=== PATIENT | male | born 1930 | race Caucasian/White ===

== ENCOUNTER → 2017-08-23 | Outpatient (CLI) | payer MEDICARE, BC ==
[~2017-08-23] MED LIST: ABAC300; ALLO300 PO; AMOCLA875 PO; Azor 10-40 MG1 EACH PO; CARV6.25 PO; CEFD300 PO; CEFP200 PO; CHOL10002 PO; CIPR500 PO; COLCHICINE0.6 MG PO; DOXY100 PO; ELIQUIS2.5 MG PO; FERR325 PO; FURO20 PO; FURO40 PO; GUAI600T33 PO; HYDR-86 PO; LEVFLO500 PO; LISI5 PO; LOSA25 PO; LOSA50 PO; METO25ER PO; MIRT15 PO; OXYC10ER PO; OXYC5; Omeprazole20 M1 PO; POTA10T PO; PRED10; PRED10 PO; PRED5 PO; PREG25 PO; RANI150 PO; Revlimid5 MG PO; SENN187 PO; SERT50 PO; TAMS.4ER PO; TEMA15 PO; VANCO 1 GR1 GM/250 M IV; VITAMIN D-32000 UNIT PO; WARF2.5 PO; WARF5; WARF5 PO; Zithromax250 MG PO; [UNRECOGNIZED DRUG - CODE] PO
[2017-08-23 09:49] LABS: BASOPHILS ABSOLUTE AUTO 0.03 K/mm3 (0.00-0.23); BASOPHILS PERCENT AUTO 1 % (0-2); EOSINOPHILS ABSOLUTE AUTO 0.02 K/mm3 (0.00-0.68); EOSINOPHILS PERCENT AUTO 0 % (0-6); Hematocrit 32.6 % (37.0-53.0); Hemoglobin 11.3 g/dL (13.5-17.5); IMMATURE GRAN ABSOLUTE AUTO 0.03 K/mm3 (0.00-0.10); IMMATURE GRAN PERCENT AUTO 1 % (0-1); LYMPHOCYTES ABSOLUTE AUTO 0.67 K/mm3 (0.84-5.20); LYMPHOCYTES PERCENT AUTO 12 % (21-46); MONOCYTES ABSOLUTE AUTO 1.04 K/mm3 (0.16-1.47); MONOCYTES PERCENT AUTO 18 % (4-13); Mean Corpuscular HGB 30.9 pg (26.0-34.0); Mean Corpuscular HGB Conc 34.7 g/dL (31.5-36.5); Mean Corpuscular Volume 89 fL (80-100); Mean Platelet Volume 9.9 fL (9.1-12.4); NEUTROPHILS ABSOLUTE AUTO 3.98 K/mm3 (1.96-9.15); NEUTROPHILS PERCENT AUTO 69 % (41-73); Platelet Count 107 K/mm3 (150-400); RDW Coefficient Variation 18.3 % (11.7-14.2); RDW Standard Deviation 58.9 fL (35.1-46.3); Red Blood Cell Count 3.66 M/mm3 (4.30-5.90); White Blood Cell Count 5.77 K/mm3 (4.00-11.30)
[2017-08-23 09:52] LABS: Anion Gap 10 mmol/L (6-16); Blood Urea Nitrogen 30 mg/dL (8-24); Bun/Creatinine Ratio 28.3 (12.0-20.0); CO2, Blood 26 mmol/L (21-32); Calcium, Blood 9.8 mg/dL (8.5-10.1); Chloride, Blood 98 mmol/L (98-108); Creatinine, Blood 1.06 mg/dL (0.60-1.20); Glomerular Filtration Rate >60 (60-); Glucose, Blood 115 mg/dL (70-99); Potassium, Blood 4.4 mmol/L (3.5-5.5); Sodium, Blood 134 mmol/L (136-145)
== END | disposition home or self-care (01) ==
LOC: LAB EV 09:43 → LAB SHORT 09:43
PROVIDERS: Physician Assistant Surgical
DX: R06.02 Shortness of breath (principal); M79.89 Other specified soft tissue disorders
CPT/HCPCS: 80048; 83880; 85025

== ENCOUNTER 2017-11-06 05:41 | Day surgery (SDC) | payer MEDICARE, BC ==
[~2017-11-06] VITALS: Ht 177.8 cm; Wt 68.0 kg
[~2017-11-06 05:41] MED LIST changes: +ACIDOPHILUS PR1 EAC1 PO; +CYAN1000I IM; +LEVSOD50 PO; +Multivitamin1 EAC2 PO; +SPIR25 PO
[2017-11-06] MEDS ORDERED: ATOR10 PO (08:40)
[2017-11-06] MEDS ORDERED: ASPI81CH PO (08:40)
== END 2017-11-06 12:46 | disposition home or self-care (01) ==
LOC: MHTC 05:41
PROC: 4A023N7 Measurement of Cardiac Sampling and Pressure, Left Heart, Percutaneous Approach (ICD-10-PCS; principal; 2017-11-06)
PROC: B211YZZ Fluoroscopy of Multiple Coronary Arteries using Other Contrast (ICD-10-PCS; principal; 2017-11-06)
DX: I25.10 Atherosclerotic heart disease of native coronary artery without angina pectoris (principal); I25.84 Coronary atherosclerosis due to calcified coronary lesion; I35.0 Nonrheumatic aortic (valve) stenosis; I48.91 Unspecified atrial fibrillation; Z87.891 Personal history of nicotine dependence; I42.9 Cardiomyopathy, unspecified; C90.00 Multiple myeloma not having achieved remission; I11.0 Hypertensive heart disease with heart failure; I50.9 Heart failure, unspecified; I48.2 Chronic atrial fibrillation; Z79.01 Long term (current) use of anticoagulants; I34.0 Nonrheumatic mitral (valve) insufficiency
CPT/HCPCS: 92920; 93454; 99152; 99153; C1725; C1769; C1894; J1644; J7030; Q9967

== ENCOUNTER → 2018-01-28 | Outpatient (CLI) | payer MEDICARE, BC ==
[~2018-01-28] MED LIST changes: +ASPI81CH PO; +ATOR10 PO
== END | disposition home or self-care (01) ==
LOC: LAB SHORT 13:07 → PLD 13:07
DX: C44.311 Basal cell carcinoma of skin of nose (principal); C44.41 Basal cell carcinoma of skin of scalp and neck
CPT/HCPCS: 88305

== ENCOUNTER → 2018-07-29 | Outpatient (CLI) | payer MEDICARE, BC | END | disposition home or self-care (01) | LOC: LAB SHORT 10:04 → PLD 10:04 | DX: D04.62 Carcinoma in situ of skin of left upper limb, including shoulder (principal); C44.311 Basal cell carcinoma of skin of nose | CPT/HCPCS: 88305 ==